=== PATIENT | male | born 2000 | race Caucasian/White ===

== ENCOUNTER 2020-01-27 19:26 | Emergency (ER) | payer BC, SELFPAY ==
[2020-01-27 19:29] VITALS: BP 173/84; PULSE 82; RESP 18; TEMP 36.3; O2SAT 100
[2020-01-27 19:46] VITALS: BP 151/90; PULSE 91; RESP 18; O2SAT 99
--- NOTE | 2020-01-27 19:51 | ECG_ITS ---
Measurements Intervals Success Rate: 88 P: 41 GA: 124 QRS: 30 QRSD: 98 T: 34 QT: 336 QTc: 408 Interpretive Statements SINUS RHYTHM WITH SINUS ARRHYTHMIA INCOMPLETE RIGHT BUNDLE BRANCH BLOCK BORDERLINE ECG Electronically Signed On 01-28-2020 7:31:20 CDT by Ross Mireles D.O.
[2020-01-27 20:18] LABS: Basophils Absolute Auto 0.1 K/mm3 (0.0-0.1); Basophils Percent Auto 1.4 % (0.2-1.2); Eosinophils Absolute Auto 0.4 K/mm3 (0-0.3); Eosinophils Percent Auto 3.7 % (0-4.4); Hematocrit 41.3 % (42.0-52.0); Hemoglobin 14.3 g/dL (14.0-18.0); Immature Granulocyte Absolute 0.02 K/mm3 (0.00-0.031); Immature Granulocyte Percent A 0.2 % (0-0.5); Lymphocytes Absolute Auto 2.68 K/mm3 (0.9-3.2); Lymphocytes Percent Auto 27.7 % (18.3-44.2); Mean Corpuscular HGB Conc 34.6 g/dl (32-36); Mean Corpuscular Hemoglobin 29.7 pg (26-34); Mean Corpuscular Volume 85.9 fl (80-100); Mean Platelet Volume 12.9 fl (7.4-10.4); Monocytes Absolute Auto 0.7 K/mm3 (0.1-0.6); Monocytes Percent Auto 7.7 % (2.6-8.5); Neutrophils Absolute Auto 5.7 K/mm3 (1.3-6.7); Neutrophils Percent Auto 59.3 % (45.5-73.1); Platelet Count Result 209 k/mm3 (150-375); Red Blood Count 4.81 M/mm3 (4.6-6.20); Red Cell Distribution Width 12.4 % (11.5-14.5); White Blood Count 9.7 K/mm3 (4.5-10.0)
--- NOTE | 2020-01-27 20:18 | ED.SYNCOPE ---
HPI - Syncope General Chief Complaint: Syncope Stated Complaint: syncopal episodes Time Seen by Provider: 01/27/20 20:08 History of Present Illness HPI narrative: Patient presents with his lizzette for fainting 2 days in a row this week. 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 He had no preceding symptoms. 2 days ago, he had argument with his parents and had just picked up the baby, when he slumped against the couch. Again there was no injury. That episode was witnessed by his lizzette. 4 years ago he had similar episodes while playing football, once he had a concussion, but had an MRI that showed no damage. He has no medical problems. His only surgery is circumcision. complaint: loss of consciousness and collapsed Onset (ago): day(s) -: second(s) Prodromal symptoms: none Witnessed: Yes - by Bystander Context: at rest Injuries sustained associated with event: none Current symptoms: none History: previous syncopal episode Treatments prior to arrival: none Related Data Allergies Allergy/AdvReac Type Severity Reaction Status Date / Time No Known Allergies Allergy Verified 11/07/13 16:07 Review of Systems Review of Systems: Narrative: CONSTITUTIONAL: Denies fever, chills, or sweats. EYES: Denies visual changes, redness, or discharge. ENT: Denies rhinorrhea, congestion, sore throat, or otalgia. CARDIOVASCULAR: Denies chest pain, palpitations, or edema. RESPIRATORY: Denies cough or dyspnea. GASTROINTESTINAL: Denies abdominal pain, nausea, vomiting, or diarrhea. GENITOURINARY: Denies dysuria or hematuria. SKIN: Denies rash or itching. MUSCULOSKELETAL: Denies back pain, joint pain, or myalgia. NEUROLOGIC: Denies headache, numbness, or weakness. PSYCHIATRIC: Denies anxiety or depression. [facility] Past Medical History Medical History (Updated 01/27/20 @ 20:33 by Cristela Estrada MD) Overweight Syncope and collapse Surgical History Surgical History (Updated 01/27/20 @ 20:22 by Cristela Estrada MD) History of circumcision Social History Social History (Updated 01/27/20 @ 20:22 by Cristela Estrada MD) Smoking status: Never smoker Alcohol intake: never Substance use: never Exam Narrative: Exam Narrative: GENERAL: Well-appearing, well-nourished, and in no acute distress. Overweight, facial acne. Delightful young man. Good sense of humor. HEAD: Normocephalic, atraumatic. EYES: PERRLA and EOMI. ENT: Nares clear, no rhinorrhea or epistaxis. Mucous membranes moist. NECK: Supple. CHEST: Clear to auscultation. No respiratory distress. HEART: Regular rate and rhythm. No murmur heard. Normal peripheral pulses. ABDOMEN: Soft, nontender, nondistended, normal active bowel sounds. EXTREMITIES: Normal range of motion. No edema. SKIN: Warm, dry, no rash. NEURO: No focal deficits. Alert and oriented x3. PSYCH: Normal mood and affect. Course Reevaluation(s) Reevaluation #1: Went in to tell the patient about his normal result, but is elevated blood pressure. I asked him to follow-up with his primary care physician Dr. Nixon, to check on the blood pressure and see if he needed some pills. He says it runs in the family and he will do that. Date: 01/27/20 Time: 20:44 Vital Signs Vital signs: Vital Signs Temperature 97.4 F L 01/27/20 19:29 Pulse Rate 82 01/27/20 19:29 Respiratory Rate 18 01/27/20 19:29 Blood Pressure 173/84 H 01/27/20 19:29 Pulse Oximetry 100 01/27/20 19:29 Temperature 97.4 F L 01/27/20 19:29 Pulse Rate 99 01/27/20 20:37 Respiratory Rate 16 01/27/20 20:23 Blood Pressure 162/86 H 01/27/20 20:37 Pulse Oximetry 98 01/27/20 20:23 MDM - Syncope Differential Diagnosis Differential diagnosis: Likely syncope due to orthostatic hypotension and vasovagal syncope Medical Records Attestation: I reviewed the patient's medical records. Lab Data Attestation: I reviewed the p
[2020-01-27 20:23] VITALS: BP 147/82; PULSE 91; RESP 16; O2SAT 98
[2020-01-27 20:30] LABS: Blood Urea Nitrogen 15 mg/dL (9-20); Calcium 9.1 mg/dL (8.4-10.2); Carbon Dioxide 26 mmol/L (22-30); Chloride 105 mmol/L (98-107); Estimated CRCL calculation 126 ml/min; Estimated Glomerular Filt Rate > 60; Glucose 101 mg/dL (75-110); Potassium 3.5 mmol/L (3.4-5.0); Sodium 140 mmol/L (137-145)
[2020-01-27 20:37] VITALS: BP 148/79; BP 150/85; BP 162/86; PULSE 92; PULSE 95; PULSE 99
[2020-01-27 20:53] VITALS: BP 148/79; PULSE 92; RESP 18; O2SAT 99
== END 2020-01-27 20:55 | disposition home or self-care (01) ==
PROVIDERS: Emergency Medicine; Emergency Provider Emergency Medicine; PCP Internal Medicine
DX: R55 Syncope and collapse (principal); R03.0 Elevated blood-pressure reading, without diagnosis of hypertension; E66.3 Overweight; Z68.37 Body mass index [BMI] 37.0-37.9, adult
CPT/HCPCS: 36415; 80048; 85025; 93005; 99284

== ENCOUNTER 2020-07-14 13:55 | Emergency (ER) | payer BC, SELFPAY ==
--- NOTE | ~2020-07-14 | XR_ITS ---
EXAMINATION: XR chest 1V portable EXAM DATE: 07/14/2020 15:23 INDICATION: Cough, sore throat. Fatigue. TECHNIQUE: Portable AP frontal chest x-ray was obtained. There is no prior study for comparison. FINDINGS: Equivocal ill-defined groundglass opacities, possible acute infectious process without dens e confluent consolidation. No pneumothorax or pleural effusion. Cardiomediastinal silhouette is salvador l. There are no osseous abnormalities identified. IMPRESSION: 1. Possible small ill-defined groundglass opacities without confluent consolidation. Reviewed, dictated and finalized at location A. [facility] IMPRESSION: 1. Possible small ill-defined groundglass opacities without confluent consoli dation.
[2020-07-14 13:59] VITALS: BP 156/101; PULSE 96; RESP 18; TEMP 36.2; O2SAT 98
[2020-07-14 14:06] VITALS: O2SAT 99
--- NOTE | 2020-07-14 15:35 | ED.URI ---
HPI - URI/Sore Throat General Chief Complaint: Upper Respiratory Infection Stated Complaint: cough, sore throat, difficulty breathing, headache Time Seen by Provider: 07/14/20 14:08 Source: RN notes reviewed History of Present Illness HPI Narrative: Patient presents to emergency department from home for upper respiratory infection symptoms. Patient states for the past 3 days he has had a sore throat associated with mild rhinorrhea patient also states he has had a cough this been nonproductive notes mild feelings of shortness of breath intermittently he denies any fevers or chills chest pain abdominal pain nausea vomiting or any other symptoms. Patient denies any loss of taste or smell Related Data Allergies Allergy/AdvReac Type Severity Reaction Status Date / Time No Known Allergies Allergy Verified 07/14/20 14:03 Review of Systems Review of Systems: Narrative: Gen.: Denies fevers or chills Eyes: Denies eye pain or visual change ENT: See HPI Respiratory: Reports cough mild shortness of breath CV: Denies chest pain or palpitations GI: Denies abdominal pain nausea, emesis or diarrhea denies burning, urgency, frequency or hematuria Musculoskeletal: Denies back pain or muscle pain Neuro: Denies numbness, tingling, weakness or focal weakness Skin: Denies rash Except as documented, all other systems reviewed and negative [facility] Past Medical History Medical History Overweight Syncope and collapse Surgical History Surgical History (Updated 01/27/20 @ 20:22 by Cristela Estrada MD) History of circumcision Social History Social History Smoking status: Never smoker Alcohol intake: never Substance use: never Exam Narrative: Exam Narrative: APPEARANCE: No acute distress, nontoxic, resting in bed EYES: EOMI HEENT: Normocephalic, atraumatic, nares patent, oral mucosa moist, erythema the posterior pharynx bilateral tonsils, tonsils 3+, uvula midline, no trismus RESPIRATORY: No respiratory distress Clear to auscultation bilaterally with no rhonchi wheezing or rales. CARDIOVASCULAR: Regular rate and rhythm without murmurs rubs or gallops. ABDOMINAL: Soft, nontender, nondistended, no rebound or guarding MUSCULOSKELETAl: Moves all extremities. No clubbing, cyanosis or edema. NEURO: Awake and alert. Following commands, speech normal, no focal deficits SKIN:: Warm, dry. No rashes lesions or abrasions PSYCHIATRIC: Normal affect/mood, Course Course Emergency Course: Discussed with patient results of workup and diagnosis. Discussed need for follow-up with primary care, proper use of medication, and reasons to return to the emergency department. Patient understands and agrees to current treatment plan Vital Signs Vital signs: Vital Signs Temperature 97.2 F L 07/14/20 13:59 Pulse Rate 96 07/14/20 13:59 Respiratory Rate 18 07/14/20 13:59 Blood Pressure 156/101 H 07/14/20 13:59 Pulse Oximetry 98 07/14/20 13:59 Temperature 97.2 F L 07/14/20 13:59 Pulse Rate 96 07/14/20 13:59 Respiratory Rate 18 07/14/20 13:59 Blood Pressure 156/101 H 07/14/20 13:59 Pulse Oximetry 99 07/14/20 14:06 MDM - URI/Sore Throat Lab Data Labs: Influenza A Screen Negative Reference Range: Negative Influenza B Screen Negative Reference Range: Negative Strep Screen Presumptive Negative *(Reference Range: Negative)* Imaging Data Radiologist's impression: ITS Impressions Chest X-Ray 07/14/20 15:24 IMPRESSION: 1. Possible small ill-defined groundglass opacities without confluent consolidation. Discharge Plan Discharge Clinical Impression: Suspected 2019-nCoV infection Patient Disposition: Home, Self-Care
[2020-07-14 15:44] VITALS: BP 160/98; PULSE 85; RESP 19; O2SAT 100
[2020-07-14 22:17] LABS: SARS-CoV-2 RNA PCR Negative
== END 2020-07-14 15:46 | disposition home or self-care (01) ==
PROVIDERS: Emergency Provider Emergency Medicine; PCP Internal Medicine
DX: Z20.822 Contact with and (suspected) exposure to COVID-19 (principal)
CPT/HCPCS: 71045; 87081; 87804; 87880; 99283; C9803; U0003

== ENCOUNTER 2021-07-16 12:32 | Emergency (ER) | payer BC, SELFPAY ==
[2021-07-16 12:37] VITALS: BP 151/85; PULSE 101; RESP 20; TEMP 35.7; O2SAT 98
--- NOTE | 2021-07-16 12:56 | ED.URI ---
HPI - URI/Sore Throat General Chief Complaint: Upper Respiratory Infection Stated Complaint: covid exposure, sent by pmd Time Seen by Provider: 07/16/21 12:43 Source: patient History of Present Illness HPI Narrative: 21 years old white male, last Covid vaccine September 2020, been exposed to one of his colleagues tested positive for Covid 5 days ago. Patient Covid symptoms 3 days ago and would like to get the Covid test to be allowed to go back to work. Patient is telling me there is no Covid test available outside at this time. Patient complaining of intermittent fever, headache, body aches, sore throat, nasal congestion. Related Data Allergies Allergy/AdvReac Type Severity Reaction Status Date / Time No Known Allergies Allergy Verified 07/14/20 14:03 Review of Systems Review of Systems: CONSTITUTIONAL: Denies fever, chills, or sweats. EYES: Denies visual changes, redness, or discharge. ENT: Denies rhinorrhea, congestion, sore throat, or otalgia. CARDIOVASCULAR: Denies chest pain, palpitations, or edema. RESPIRATORY: Denies cough or dyspnea. GASTROINTESTINAL: Denies abdominal pain, nausea, vomiting, or diarrhea. GENITOURINARY: Denies dysuria or hematuria. SKIN: Denies rash or itching. MUSCULOSKELETAL: Denies back pain, joint pain, or myalgia. NEUROLOGIC: Denies headache, numbness, or weakness. PSYCHIATRIC: Denies anxiety or depression. [facility] Past Medical History Medical History Overweight Syncope and collapse Surgical History Surgical History History of circumcision Social History Social History Smoking status: Never smoker Alcohol intake: never Substance use: never Exam Narrative: General appearance: Well-developed, well-nourished Skin: Normal color Head: Normocephalic, nontraumatic Eyes: Clear conjunctiva ENT: Oropharynx normal, ears normal, nose normal Neck: Supple, nontender Chest and respiratory: Airway patent, no respiratory distress, no accessory muscle use Heart: Regular rate/rhythm Abdomen: Soft, nontender, no organomegaly, quiet bowel sounds Vascular: Normal peripheral pulses, normal capillary refill. Musculoskeletal: Normal range of motion, nontender back Neurologic: Alert and oriented ?3, POWDER MONKEY is normal as tested, no gross motor deficit Course Course Emergency Course: Stable Vital Signs Vital signs: Vital Signs Temperature 35.7 C L 07/16/21 12:37 Pulse Rate 101 H 07/16/21 12:37 Respiratory Rate 20 07/16/21 12:37 Blood Pressure 151/85 H 07/16/21 12:37 Pulse Oximetry 98 07/16/21 12:37 Temperature 35.7 C L 07/16/21 12:37 Pulse Rate 101 H 07/16/21 12:37 Respiratory Rate 20 07/16/21 12:37 Blood Pressure 151/85 H 07/16/21 12:37 Pulse Oximetry 98 07/16/21 12:37 MDM - URI/Sore Throat MDM Narrative Medical decision making narrative: Post Covid exposure, Covid test ordered Critical Care Time Critical Care Time Critical Care Time: No Discharge Plan Discharge Clinical Impression: Upper respiratory infection, Close exposure to COVID-19 virus Patient Disposition: Home, Self-Care Condition: Stable Instructions: Viral Syndrome (ED) Additional Instructions: Return if symptoms are worsening , call your family physician for appointment, take Tylenol as as needed for aches and pain, continue home medications., Remain isolated at home until he get the Covid test result. Excuse off work for 2 days until he get the Covid test result. Prescriptions: No Action azithromycin [Zithromax Z-Jermaine] 250 mg tablet See Rx Instr
[2021-07-16 15:23] LABS: SARS-CoV-2 RNA PCR Positive
== END 2021-07-16 13:25 | disposition home or self-care (01) ==
PROVIDERS: Emergency Provider Emergency Medicine; PCP Internal Medicine
DX: U07.1 COVID-19 (principal); J06.9 Acute upper respiratory infection, unspecified; E66.3 Overweight; Z68.37 Body mass index [BMI] 37.0-37.9, adult
CPT/HCPCS: 99283; C9803; U0003; U0005